=== PATIENT | male | born 1955 | race Two or more races ===

== ENCOUNTER 2023-11-02 12:06 | Emergency (ER) | payer OTHER ==
[~2023-11-02] VITALS: Ht 170.2 cm; Wt 87.8 kg
[2023-11-02 12:57] VITALS: BP 124/84; PULSE 118; RESP 18; TEMP 98.7; O2SAT 95
[2023-11-02] MEDS: methylPREDNISolone SOD SUCC 125 MG/2 ML VL IM ONE (13:53)
[2023-11-02] MEDS: diphenhdrAMINE HCL 50 MG/1 ML VL IM ONE (13:54)
[2023-11-02] MEDS: EPINEPHrine HCL 1 MG/1 ML AMP SC ONE (13:54)
[2023-11-02] MEDS ORDERED: PRED20TA2 PO (14:07)
[2023-11-02] MEDS ORDERED: HYDR50TA69 PO (14:07)
== END 2023-11-02 14:12 | disposition home or self-care (01) ==
LOC: ER 12:06
DX: T78.40XA Allergy, unspecified, initial encounter (principal); R21 Rash and other nonspecific skin eruption; X58.XXXA Exposure to other specified factors, initial encounter
CPT/HCPCS: 96372; 99284; J0171; J1200; J2919

== ENCOUNTER 2023-11-07 11:31 | Emergency (ER) | payer OTHER ==
[~2023-11-07] VITALS: Ht 170.2 cm; Wt 87.9 kg
[~2023-11-07 11:31] MED LIST: HYDR50TA69 PO; PRED20TA2 PO
[2023-11-07] MEDS: EPINEPHrine HCL 1 MG/1 ML AMP SC ONE (13:19)
[2023-11-07] MEDS: diphenhdrAMINE HCL 50 MG/1 ML VL IV ONE ×2 (14:18→15:15)
[2023-11-07] MEDS: methylPREDNISolone SOD SUCC 125 MG/2 ML VL IV ONE (14:18)
[2023-11-07 14:28] VITALS: BP 127/71; PULSE 79; RESP 18; TEMP 97.7; O2SAT 97
[2023-11-07] MEDS: SODIUM CHLORIDE 0.9% 500 ML IV ONE (14:40)
[2023-11-07] MEDS ORDERED: METH4PAK PO (15:22)
[2023-11-07] MEDS ORDERED: [UNRECOGNIZED DRUG - CODE] PO (15:22)
== END 2023-11-07 15:30 | disposition home or self-care (01) ==
LOC: ER 11:31
DX: T78.49XA Other allergy, initial encounter (principal); Z79.899 Other long term (current) drug therapy; X58.XXXA Exposure to other specified factors, initial encounter
CPT/HCPCS: 96372; 99283; J0171; J1200; J2919; J7030